=== PATIENT | female | born 1985 | race Caucasian/White ===

== ENCOUNTER 2018-02-13 18:27 | Inpatient (IN) | payer MEDICAID ==
[2018-02-13 19:04] LABS: ADD MAN DIFF? NO
[2018-02-13 19:06] LABS: BASOPHILS % 0.4 % (0.0-2.0); EOSINOPHILS % 0.5 % (0.0-7.0); HEMATOCRIT 35.2 % (37.0-47.0); HEMOGLOBIN 11.4 g/dl (12.0-16.0); LYMPHOCYTES # 1.4 10^3/ul (0.8-2.9); LYMPHOCYTES % 18.2 % (15.0-51.0); MEAN CORPUSCULAR HEMOGLOBIN 27.9 pg (29.0-33.0); MEAN CORPUSCULAR HGB CONC 32.4 g/dl (32.0-37.0); MEAN CORPUSCULAR VOLUME 86.3 fl (82.0-101.0); MEAN PLATELET VOLUME 11.4 fl (7.4-10.4); MONOCYTE # 0.4 10^3/ul (0.3-0.9); MONOCYTES % 5.6 % (0.0-11.0); NEUTROPHIL # 5.7 10^3/ul (1.6-7.5); NEUTROPHILS % 74.6 % (39.0-77.0); PLATELET COUNT 263 10^3/UL (140-415); RED BLOOD COUNT 4.08 10^6/ul (4.20-5.40)
[2018-02-13 19:06] LABS: WHITE BLOOD COUNT 7.6 10^3/ul (4.8-10.8)
[2018-02-13 19:28] LABS: ALANINE AMINOTRANSFERASE 60 IU/L (13-69); ALBUMIN 3.6 g/dl (3.3-4.9); ALBUMIN/GLOBULIN RATIO 0.97; ALKALINE PHOSPHATASE 321 IU/L (42-121); ANION GAP 12 (8-16); ASPARTATE AMINO TRANSFERASE 47 IU/L (15-46); BILIRUBIN,INDIRECT 0.3 mg/dl (0-1.1); BILIRUBIN,TOTAL 0.3 mg/dl (0.2-1.3); BLOOD UREA NITROGEN 9 mg/dl (7-20); CALCIUM 9.1 mg/dl (8.4-10.2); CARBON DIOXIDE 24 mmol/L (21-31); CHLORIDE 106 mmol/L (97-110); CREATININE 0.79 mg/dl (0.44-1.00); GLUCOSE 119 mg/dl (70-220); POTASSIUM 3.9 mmol/L (3.5-5.1); SODIUM 138 mmol/L (135-144); TOTAL PROTEIN 7.3 g/dl (6.1-8.1)
[2018-02-13 20:03] LABS: ADD UMIC NO; UR ASCORBIC ACID NEGATIVE (NEGATIVE); UR BILIRUBIN (Dip) NEGATIVE (NEGATIVE); UR BLOOD (Dip) NEGATIVE (NEGATIVE); UR CLARITY CLEAR (CLEAR); UR COLOR YELLOW (YELLOW); UR GLUCOSE (Dip) NEGATIVE (NEGATIVE); UR KETONES (Dip) NEGATIVE (NEGATIVE); UR LEUKOCYTE ESTERASE (Dip) NEGATIVE Leu/ul (NEGATIVE); UR NITRITE (Dip) NEGATIVE (NEGATIVE); UR SPECIFIC GRAVITY (Dip) 1.005 (1.003-1.030); UR TOTAL PROTEIN (Dip) NEGATIVE (NEGATIVE); UR UROBILINOGEN (Dip) NEGATIVE (NEGATIVE)
[2018-02-13] MEDS ORDERED: LACTATED RINGER'S 1,000 ML IV (20:25)
[2018-02-13] MEDS ORDERED: MISOPROSTOL 200 MCG TAB PR (20:30)
[2018-02-13] MEDS ORDERED: CARBOPROST 250 MCG INJ IM (20:30)
[2018-02-13] MEDS ORDERED: IBUPROFEN 600 MG TAB PO (20:30)
[2018-02-13] MEDS ORDERED: METHYLERGONOVINE 0.2 MG INJ IM (20:30)
[2018-02-13] MEDS ORDERED: OXYTOCIN 30 UNITS/LR 500 ML IV (20:30)
[2018-02-13 20:59] LABS: INR 0.88; PT RATIO 0.9
[2018-02-13 21:00] LABS: PARTIAL THROMBOPLASTIN TIME 29.2 Sec (25.0-35.0)
[2018-02-13] MEDS ORDERED: URSODIOL 300 MG CAP PO (21:30)
[2018-02-13] MEDS ORDERED: MINERAL OIL LIGHT 10 ML VIAL TOP (21:30)
[2018-02-13 21:35] LABS: HEPATITIS B SURFACE ANTIGEN NEGATIVE (NEGATIVE)
[2018-02-13] MEDS: LACTATED RINGER'S 1,000 ML IV (22:15)
[2018-02-13] MEDS: DINOPROSTONE 10 MG VAG SUPP VAG (22:37)
[2018-02-13] MEDS: URSODIOL 300 MG CAP PO (23:21)
[2018-02-14] MEDS: LACTATED RINGER'S 1,000 ML IV ×3 (05:34→20:43)
[2018-02-14] MEDS: URSODIOL 300 MG CAP PO ×3 (08:56→20:43)
[2018-02-14 15:30] LABS: RAPID PLASMA REAGIN NONREACTIVE (NR)
[2018-02-15] MEDS: LACTATED RINGER'S 1,000 ML IV ×3 (04:42→21:22)
[2018-02-15] MEDS: URSODIOL 300 MG CAP PO ×3 (09:00→21:22)
[2018-02-15] MEDS: MISOPROSTOL 25 MCG CAPSULE PO ×2 (18:30→21:00)
[2018-02-16] MEDS: MISOPROSTOL 25 MCG CAPSULE PO ×6 (01:00→20:50)
[2018-02-16] MEDS: LACTATED RINGER'S 1,000 ML IV ×3 (04:25→23:38)
[2018-02-16] MEDS: URSODIOL 300 MG CAP PO ×3 (11:34→21:39)
[2018-02-16 17:23] LABS: ALANINE AMINOTRANSFERASE 83 IU/L (13-69); ALBUMIN 3.1 g/dl (3.3-4.9); ALBUMIN/GLOBULIN RATIO 0.93; ALKALINE PHOSPHATASE 314 IU/L (42-121); ANION GAP 9 (8-16); ASPARTATE AMINO TRANSFERASE 48 IU/L (15-46); BILIRUBIN,INDIRECT 0.2 mg/dl (0-1.1); BILIRUBIN,TOTAL 0.2 mg/dl (0.2-1.3); BLOOD UREA NITROGEN 8 mg/dl (7-20); CALCIUM 8.6 mg/dl (8.4-10.2); CARBON DIOXIDE 24 mmol/L (21-31); CHLORIDE 111 mmol/L (97-110); CREATININE 0.79 mg/dl (0.44-1.00); GLUCOSE 83 mg/dl (70-220); SODIUM 140 mmol/L (135-144); TOTAL PROTEIN 6.4 g/dl (6.1-8.1)
[2018-02-16] MEDS ORDERED: MISOPROSTOL 25 MCG CAPSULE (20:22)
[2018-02-17] MEDS: MISOPROSTOL 25 MCG CAPSULE PO ×4 (00:35→13:00)
[2018-02-17] MEDS: LACTATED RINGER'S 1,000 ML IV ×2 (09:09→13:11)
[2018-02-17] MEDS: URSODIOL 300 MG CAP PO ×3 (09:09→22:12)
[2018-02-17] MEDS: OXYTOCIN 30 UNITS/LR 500 ML IV (13:09)
[2018-02-17] MEDS: BUTORPHANOL 2 MG INJ IV (19:34)
[2018-02-17] MEDS ORDERED: FENTAnyl 2MCG/ML-ROPIV 0.2% 100 ML (21:52)
[2018-02-17] MEDS ORDERED: DIPHENHYDRAMINE 50 MG INJ IV (22:00)
[2018-02-17] MEDS ORDERED: NALOXONE (0.4 MG/ML) INJ IV (22:00)
[2018-02-18] MEDS: LACTATED RINGER'S 1,000 ML IV ×2 (07:51→08:11)
[2018-02-18] MEDS: FENTAnyl 2MCG/ML-ROPIV 0.2% 100 ML BAG EPI (08:09)
[2018-02-18] MEDS: AMPICILLIN 2 GM/NS (PMX) 100 ML IV (08:10)
[2018-02-18] MEDS: ACETAMINOPHEN 325 MG TAB PO ×2 (08:10→15:08)
[2018-02-18] MEDS: URSODIOL 300 MG CAP PO ×3 (09:00→13:00)
[2018-02-18] MEDS: AMPICILLIN 1 GM/NS (PMX) 50 ML IV (12:05)
[2018-02-18] MEDS: ONDANSETRON 4 MG INJ IV (13:08)
[2018-02-18] MEDS ORDERED: GENTAMICIN 120 MG/NS (PMX) 100 ML IVPB (14:52)
[2018-02-18] MEDS: GENTAMICIN 120 MG/NS (PMX) 100 ML IVPB (15:13)
[2018-02-18] MEDS: MINERAL OIL LIGHT 10 ML VIAL TOP (15:14)
[2018-02-18] MEDS: LIDOCAINE 1% (MPF) 30 ML INJ INJ (15:33)
[2018-02-18] MEDS: BUTORPHANOL 2 MG INJ IV (15:51)
[2018-02-18] MEDS: OXYTOCIN 30 UNITS/LR 500 ML IV ×2 (15:53→16:37)
[2018-02-18] MEDS: LACTATED RINGER'S 1,000 ML IV* (18:13)
[2018-02-18] MEDS ORDERED: MISOPROSTOL 200 MCG TAB PR (18:30)
[2018-02-18] MEDS ORDERED: CARBOPROST 250 MCG INJ IM (18:30)
[2018-02-18] MEDS ORDERED: OXYTOCIN 30 UNITS/LR 500 ML IV (18:30)
[2018-02-18] MEDS ORDERED: BENZOCAINE 20% 56 ML SPRAY TOP (18:30)
[2018-02-18] MEDS ORDERED: DIBUCAINE 1% 30 GM OINT PR (18:30)
[2018-02-18] MEDS ORDERED: WITCH HAZEL/GLYCERIN PAD PR (18:30)
[2018-02-18] MEDS ORDERED: METHYLERGONOVINE 0.2 MG INJ IM (18:30)
[2018-02-18] MEDS ORDERED: ZOLPIDEM 5 MG TAB PO (18:30)
[2018-02-18] MEDS: SENNA/DOCUSATE NA (8.6MG/50MG) TAB PO (20:55)
[2018-02-18] MEDS: HYDROCODONE/APAP (5/325) TAB PO (20:55)
[2018-02-18] MEDS: MAGNESIUM HYDROXIDE 30ML CUP PO (21:17)
[2018-02-18 21:38] LABS: CHOLIC ACID 87.3 umol/L (< OR = 1.8); DEOXYCHOLIC ACID 8.8 umol/L (< OR = 2.4)
[2018-02-18] MEDS: IBUPROFEN 600 MG TAB PO (23:31)
[2018-02-18] MEDS: AMPICILLIN/SULB 3 GM/NS (PMX) 100 ML IVPB (23:32)
[2018-02-19] MEDS: IBUPROFEN 600 MG TAB PO ×4 (05:33→23:31)
[2018-02-19] MEDS: AMPICILLIN/SULB 3 GM/NS (PMX) 100 ML IVPB ×4 (05:33→23:31)
[2018-02-19 08:17] LABS: ADD MAN DIFF? NO
[2018-02-19] MEDS: SENNA/DOCUSATE NA (8.6MG/50MG) TAB PO ×2 (08:17→21:27)
[2018-02-19] MEDS: MAGNESIUM HYDROXIDE 30ML CUP PO ×2 (08:17→21:27)
[2018-02-19] MEDS: HYDROCODONE/APAP (5/325) TAB PO ×3 (08:18→13:41)
[2018-02-19 08:19] LABS: BASOPHIL # 0.1 10^3/ul (0.0-0.1); BASOPHILS % 0.4 % (0.0-2.0); EOSINOPHILS # 0.1 10^3/ul (0.0-0.5); EOSINOPHILS % 0.3 % (0.0-7.0); HEMATOCRIT 27.9 % (37.0-47.0); HEMOGLOBIN 9.1 g/dl (12.0-16.0); LYMPHOCYTES # 2.1 10^3/ul (0.8-2.9); LYMPHOCYTES % 10.9 % (15.0-51.0); MEAN CORPUSCULAR HEMOGLOBIN 28.2 pg (29.0-33.0); MEAN CORPUSCULAR HGB CONC 32.6 g/dl (32.0-37.0); MEAN CORPUSCULAR VOLUME 86.4 fl (82.0-101.0); MEAN PLATELET VOLUME 12.3 fl (7.4-10.4); MONOCYTES % 5.3 % (0.0-11.0); NEUTROPHIL # 15.5 10^3/ul (1.6-7.5); NEUTROPHILS % 82.5 % (39.0-77.0); PLATELET COUNT 184 10^3/UL (140-415); RED BLOOD COUNT 3.23 10^6/ul (4.20-5.40); RED CELL DISTRIBUTION WIDTH 14.6 % (11.5-14.5)
[2018-02-19 08:19] LABS: WHITE BLOOD COUNT 18.8 10^3/ul (4.8-10.8)
[2018-02-19] MEDS: LACTATED RINGER'S 1,000 ML IV* ×2 (08:21→09:25)
[2018-02-20] MEDS: HYDROCODONE/APAP (5/325) TAB PO ×2 (01:26→09:45)
[2018-02-20] MEDS: IBUPROFEN 600 MG TAB PO ×3 (05:29→17:50)
[2018-02-20] MEDS: AMPICILLIN/SULB 3 GM/NS (PMX) 100 ML IVPB ×2 (05:29→12:00)
[2018-02-20 07:03] LABS: ADD MAN DIFF? NO
[2018-02-20 07:10] LABS: WHITE BLOOD COUNT 15.7 10^3/ul (4.8-10.8)
[2018-02-20 07:10] LABS: BASOPHIL # 0.1 10^3/ul (0.0-0.1); BASOPHILS % 0.4 % (0.0-2.0); EOSINOPHILS # 0.2 10^3/ul (0.0-0.5); EOSINOPHILS % 1.1 % (0.0-7.0); HEMATOCRIT 30.1 % (37.0-47.0); HEMOGLOBIN 9.7 g/dl (12.0-16.0); LYMPHOCYTES # 2.2 10^3/ul (0.8-2.9); MEAN CORPUSCULAR HEMOGLOBIN 28.2 pg (29.0-33.0); MEAN CORPUSCULAR HGB CONC 32.2 g/dl (32.0-37.0); MEAN CORPUSCULAR VOLUME 87.5 fl (82.0-101.0); MONOCYTE # 0.9 10^3/ul (0.3-0.9); MONOCYTES % 5.6 % (0.0-11.0); NEUTROPHIL # 12.2 10^3/ul (1.6-7.5); NEUTROPHILS % 77.9 % (39.0-77.0); PLATELET COUNT 219 10^3/UL (140-415); RED BLOOD COUNT 3.44 10^6/ul (4.20-5.40); RED CELL DISTRIBUTION WIDTH 14.7 % (11.5-14.5)
[2018-02-20] MEDS: DIPHTH/TET/ACEL PERTUSS (ADULT) 0.5 ML VIAL IM* (09:00)
[2018-02-20] MEDS: MEASLES,MUMPS,RUBELLA VACCINE INJ SC* (09:00)
[2018-02-20] MEDS: VARICELLA VACCINE LIVE/PF 1,350 UNIT/0.5 ML ML SC* (09:00)
[2018-02-20] MEDS: MAGNESIUM HYDROXIDE 30ML CUP PO (09:44)
[2018-02-20] MEDS: SENNA/DOCUSATE NA (8.6MG/50MG) TAB PO (09:44)
[2018-02-20] MEDS: LANOLIN 7 GM TUBE TOP (17:50)
== END 2018-02-20 18:41 | disposition home or self-care (01) | DRG 775 ==
LOC: OBT 18:27 → PP1 02-18 17:50 → L-D 18:28 → OBT 20:23 → L-D 20:40
PROVIDERS: Obstetrics & Gynecology
PROC: 10E0XZZ Delivery of Products of Conception, External Approach (ICD-10-PCS; principal; 2018-02-17)
PROC: 0W8NXZZ Division of Female Perineum, External Approach (ICD-10-PCS; 2018-02-17)
PROC: 3E033VJ Introduction of Other Hormone into Peripheral Vein, Percutaneous Approach (ICD-10-PCS; 2018-02-17)
DX: O26.62 Liver and biliary tract disorders in childbirth (principal); K83.1 Obstruction of bile duct; Z3A.38 38 weeks gestation of pregnancy; Z37.0 Single live birth
CPT/HCPCS: 62319; 76815; 76818; 80053; 81003; 83789; 85025; 85610; 85730; 86592; 86850; 86900; 86901; 87086; 87340; 88307; 99464